=== PATIENT | male | born 1965 | race Caucasian/White ===

== ENCOUNTER 2017-05-11 17:29 | Emergency (ER) | payer BC ==
[~2017-05-11] VITALS: Ht 182.9 cm; Wt 98.8 kg
[~2017-05-11 17:29] MED LIST: AMLODIPINE BESY10 MG PO; FLEXERIL10 MG PO; FLOVENT 22120 INHALA IH; IBUPROFEN800 MG PO; KEFLEX500 MG PO; LISINOPRIL40 MG PO; NAPROSYN500 MG PO; NOHOMEMEDS; PERCOCET 5/31 TABLET PO; PROAIR HFA8.5 GM IH; ZOLPIDEM TARTRA10 MG PO
[2017-05-11 18:14] LABS: ADD MIUA? NO; BILIRUBIN NEGATIVE; BLOOD NEGATIVE; COLOR YELLOW ((YELLOW)); GLUCOSE (STRIP) NEGATIVE; KETONES 5; LEUKOCYTES NEGATIVE; NITRITE NEGATIVE; PROTEIN (STRIP) NEGATIVE; SPECIFIC GRAVITY 1.025 (1.000-1.030); UCUL ADDED? NO; UROBILINOGEN 0.2 MG/DL (0.2-1.0)
[2017-05-11 18:15] LABS: MCH 32.9 PG (29.0-34.0); MCHC 34.6 G/DL (30.0-36.0); MCV 94.9 FL (86-99); MEAN PLAT.VOLUME 10.1 uM^3 (9.0-12.4); PLATELET COUNT 253 K/uL (156-360); RBC DIS.WIDTH-CV 11.7 % (11.8-14.6); RBC DIS.WIDTH-SD 40.4 % (39-53); RED BLOOD COUNT 4.32 M/uL (4.00-5.50); WHITE BLOOD COUNT 13.8 K/uL (4.1-10.2)
[2017-05-11 18:27] LABS: CHLORIDE 106 mEq/L (99-109); POTASSIUM 4.5 mEq/L (3.7-5.4); SODIUM 135 mEq/L (136-147)
[2017-05-11 18:29] LABS: GLUCOSE 108 mg/dL (70-99)
[2017-05-11 18:31] LABS: ANION GAP 6 MEQ/L (2-14); TOTAL BILIRUBIN 0.7 mg/dL (0.0-1.0)
[2017-05-11 18:33] LABS: ALKALINE PHOSPHATASE 75 IU/L (3-129); GFR ESTIMATE (CALCULATED) > 59 mL/min/
[2017-05-11 18:34] LABS: UREA NITROGEN (BUN) 13 mg/dL (9-23)
[2017-05-11 19:52] LABS: LIPASE 42 U/L (1.0-51.0)
[2017-05-11] MEDS ORDERED: ZOFRAN4 MG PO (22:07)
[2017-05-11] MEDS ORDERED: PERCOCET 5/31 TABLET PO (22:07)
[2017-05-11 22:41] VITALS: BP 152/90
== END 2017-05-11 23:00 | disposition home or self-care (01) ==
LOC: EME 17:29
DX: K85.90 Acute pancreatitis without necrosis or infection, unspecified (principal); F17.200 Nicotine dependence, unspecified, uncomplicated; Z88.5 Allergy status to narcotic agent
CPT/HCPCS: 74177; 80053; 81003; 83690; 85027; 99281; 99285; J2270; J3010; J7030